=== PATIENT | female | born 1985 | race Caucasian/White ===

== ENCOUNTER 2023-01-26 21:22 | Emergency (ER) | payer MEDICAID ==
[~2023-01-26] VITALS: Ht 170.2 cm; Wt 52.2 kg
[2023-01-26] MEDS ORDERED: SULF1TAB48 PO (22:28)
[2023-01-26] MEDS ORDERED: PRED20TA PO (22:28)
[2023-01-26] MEDS ORDERED: CEPH500C2 PO (22:28)
[2023-01-26 22:34] VITALS: BP 125/85; TEMP 97.8; O2SAT 98
== END 2023-01-26 22:35 | disposition home or self-care (01) ==
LOC: ER 21:22
DX: S70.362A Insect bite (nonvenomous), left thigh, initial encounter (principal); L03.116 Cellulitis of left lower limb; W57.XXXA Bitten or stung by nonvenomous insect and other nonvenomous arthropods, initial encounter; Y93.89 Activity, other specified; Y92.89 Other specified places as the place of occurrence of the external cause; Y99.8 Other external cause status
CPT/HCPCS: A4663

== ENCOUNTER 2023-02-17 18:12 | Emergency (ER) | payer MEDICAID ==
[~2023-02-17] VITALS: Ht 170.2 cm; Wt 52.2 kg
[~2023-02-17 18:12] MED LIST: CEPH500C2 PO; PRED20TA PO; SULF1TAB48 PO
[2023-02-17] MEDS ORDERED: CLINDAMYCIN HCL 300 MG CAPSULE ONE (18:51)
[2023-02-17] MEDS ORDERED: CLIN300C12 PO (18:55)
[2023-02-17] MEDS ORDERED: CLINDAMYCIN HCL 150 MG CAPSULE PO ONE (19:00)
[2023-02-17 19:01] VITALS: BP 131/80; O2SAT 99
== END 2023-02-17 19:01 | disposition home or self-care (01) ==
LOC: ER 18:20
DX: R21 Rash and other nonspecific skin eruption (principal); Z79.899 Other long term (current) drug therapy
CPT/HCPCS: A4663

== ENCOUNTER 2023-08-10 11:43 | Emergency (ER) | payer MEDICAID, OTHER ==
[~2023-08-10] VITALS: Ht 170.2 cm; Wt 57.2 kg
[~2023-08-10 11:43] MED LIST changes: +CLIN300C12 PO
[2023-08-10] MEDS ORDERED: FAMC500T3 PO (12:27)
[2023-08-10 12:30] VITALS: BP 130/80; TEMP 98; O2SAT 99
== END 2023-08-10 12:33 | disposition home or self-care (01) ==
LOC: ER 11:43
DX: B00.9 Herpesviral infection, unspecified (principal); Z79.899 Other long term (current) drug therapy
CPT/HCPCS: A4606; A4663

== ENCOUNTER 2024-04-01 09:03 | Emergency (ER) | payer OTHER ==
[~2024-04-01] VITALS: Ht 170.2 cm; Wt 52.2 kg
[~2024-04-01 09:03] MED LIST changes: +FAMC500T3 PO
[2024-04-01 09:08] VITALS: O2SAT 100
[2024-04-01] MEDS ORDERED: [UNRECOGNIZED DRUG - CODE] MC (10:04)
[2024-04-01] MEDS ORDERED: PREG50CA PO (10:04)
== END 2024-04-01 10:24 | disposition home or self-care (01) ==
LOC: ER 09:03
DX: R21 Rash and other nonspecific skin eruption (principal); Q79.60 Ehlers-Danlos syndrome, unspecified; F43.10 Post-traumatic stress disorder, unspecified; F90.9 Attention-deficit hyperactivity disorder, unspecified type; I73.00 Raynaud's syndrome without gangrene; Z79.52 Long term (current) use of systemic steroids; Z79.624 Long term (current) use of inhibitors of nucleotide synthesis
CPT/HCPCS: A4606; A4663

== ENCOUNTER 2024-06-04 15:36 | Emergency (ER) | payer OTHER ==
[~2024-06-04] VITALS: Ht 170.2 cm; Wt 52.2 kg
[~2024-06-04 15:36] MED LIST changes: +PREG50CA PO; +[UNRECOGNIZED DRUG - CODE] MC
[2024-06-04 16:18] VITALS: O2SAT 99
[2024-06-04] MEDS ORDERED: TETRACAINE HCL 0.5% OPHT DROP 2 ML BOTTLE ONE (16:42)
[2024-06-04] MEDS ORDERED: FLUORESCEIN SODIUM 1 MG STRIP ONE (16:42)
[2024-06-04] MEDS: FLUORESCEIN SODIUM 1 MG STRIP OP ONE (16:46)
== END 2024-06-04 17:12 | disposition home or self-care (01) ==
LOC: ER 15:36
DX: B00.89 Other herpesviral infection (principal); H57.12 Ocular pain, left eye; Z79.52 Long term (current) use of systemic steroids; Z79.624 Long term (current) use of inhibitors of nucleotide synthesis
CPT/HCPCS: A4606; A4663

== ENCOUNTER 2024-11-02 10:11 | Emergency (ER) | payer OTHER ==
[~2024-11-02] VITALS: Ht 170.2 cm; Wt 52.2 kg
[2024-11-02 10:58] LABS: BASOPHILS % (AUTO) 0.7 % (0.0-2.0); DIFFERENTIAL COMMENT 1; EOSINOPHILS # (AUTO) 0.2 K/uL (0.0-0.7); EOSINOPHILS % (AUTO) 3.7 % (0.0-7.0); HEMATOCRIT 39.3 % (31.2-41.9); HEMOGLOBIN 13.5 g/dL (10.9-14.3); LYMPHOCYTES # (AUTO) 1.7 K/uL (0.8-4.8); LYMPHOCYTES % (AUTO) 29.8 % (20.5-51.5); MEAN CORPUSCULAR HEMOGLOBIN 31.2 uug (24.7-32.8); MEAN CORPUSCULAR HGB CONC 34 g/dL (32.3-35.6); MEAN CORPUSCULAR VOLUME 91.1 fL (75.5-95.3); MONOCYTES # (AUTO) 0.5 K/uL (0.1-1.30); MONOCYTES % (AUTO) 8.5 % (0.0-11.0); NEUTROPHILS # (AUTO) 3.3 K/uL (1.8-8.9); NEUTROPHILS % (AUTO) 57.3 % (38.5-71.5); PLATELET COUNT (AUTO) 340 K/uL (179-408); RED BLOOD CELL COUNT(AUTO) 4.32 MIL/uL (3.63-4.92); RED CELL DISTRIBUTION WIDTH 13.8 % (12.3-17.7); WHITE BLOOD COUNT (AUTO) 5.8 K/uL (3.8-11.8)
[2024-11-02 11:05] LABS: CALCIUM 8.9 mg/dL (8.5-10.1); CARBON DIOXIDE 27 mmol/L (21-32); CHLORIDE 101 mmol/L (98-107); CREATININE 0.9 mg/dL (0.6-1.3); GLUCOSE 84 mg/dL (74-106); POTASSIUM 4.5 mmol/L (3.5-5.1); SODIUM SERUM 137 mmol/L (136-145); UREA NITROGEN, BLOOD 8 mg/dL (7-18)
[2024-11-02 11:18] LABS: ALANINE AMINOTRANSFERASE 33 U/L (14-59); ALBUMIN 3.9 g/dL (3.4-5.0); ALKALINE PHOSPHATASE 48 U/L (50-136); ASPARTATE AMINOTRANSFERASE 19 U/L (15-37); BILIRUBIN,DIRECT 0.2 mg/dL (0.0-0.2); BILIRUBIN,TOTAL 0.4 mg/dL (0.2-1.0); NT-PRO BNP 40 pg/mL (0-125); TOTAL PROTEIN, SERUM 6.6 g/dL (6.4-8.2)
[2024-11-02 12:38] VITALS: BP 135/89; TEMP 97.8; O2SAT 100
== END 2024-11-02 11:53 | disposition home or self-care (01) ==
LOC: ER 10:11
DX: R42 Dizziness and giddiness (principal); T50.8X5A Adverse effect of diagnostic agents, initial encounter; R11.0 Nausea; R10.2 Pelvic and perineal pain; I73.00 Raynaud's syndrome without gangrene; Z79.52 Long term (current) use of systemic steroids; Z79.624 Long term (current) use of inhibitors of nucleotide synthesis; Z79.899 Other long term (current) drug therapy; Y92.89 Other specified places as the place of occurrence of the external cause
CPT/HCPCS: 36415; 84484; 85025; 85730; A4606; A4663